=== PATIENT | female | born 1980 | race Caucasian/White ===

== ENCOUNTER 2017-03-17 15:25 | Inpatient (IN) ==
[2017-03-17] MEDS ORDERED: 0.9 % Sodium Chloride 1,000 ML IVC ONE (15:32)
--- NOTE | 2017-03-17 15:49 | General Surg History&Physical ---
Date of Encounter: 03/17/17 Time of Encounter: 15:47 Assessment and Plan (1) Gallstones and inflammation of gallbladder without obstruction Status: Acute 36F with cholecystitis with concern for choledocholithiasis. All prior imaging was reviewed and interpreted by me along with radiology. With her dutal dilatation and persistent pain, I am concerned that she may have choledocholithiasis in addition to acute cholecystitis. I am not comfortable with sending her home with such a diagnosis pending. - admit - DVT prophylaxix - NPO -IVF - dilaudid for pain control - restart home meds - labs (CBC, CMP, amylase, lipase, PTH) - imaging: US of abdomen possible MRCP vs ERCP pending results - UA - abx: zosyn The assessment and plan as outlined above was discussed with the patient and/or family members who expressed understanding and agreement. All questions were answered. Code(s): K80.00 - Calculus of gallbladder with acute cholecystitis without obstruction (2) Anxiety disorder Status: Chronic restart associated home meds The assessment and plan as outlined above was discussed with the patient and/or family members who expressed understanding and agreement. All questions were answered. (3) Depression Status: Chronic restart associated home medication The assessment and plan as outlined above was discussed with the patient and/or family members who expressed understanding and agreement. All questions were answered. Qualifiers: Depression Type: major depressive disorder Major depression recurrence: recurrent Active/Remission status: currently active Psychotic features: without psychotic features (4) Tobacco abuse Status: Chronic encourage smoking cessation nicotine patch The assessment and plan as outlined above was discussed with the patient and/or family members who expressed understanding and agreement. All questions were answered. History of Present Illness Chief complaint: abdominal pain, RUQ HPI: 36F with a PMH of opiod abuse who presents with RUQ abdominal pain that has been ongoing for several months. The pain is worse after spicy foods with associated nausea. She was evaluated recently in the emergency department and found to have cholelithiasis with concern for common bile duct dilatation. In addition her labs, at that time, were concerning for possible UTI. She presents to clinic for further evaluation. The patient does report that she is in a significant amount of pain and is not able to take another night in such pain Past Med Surg Social Fam HX - Past Medical History Medical history: arthritis, kidney stones, other Psychiatric history: anxiety, bipolar, depression, prior suicide attempt, previous psychiatric hospitalization - Past Surgical History Surgical History: , orthopedic, other - Social History Smoking Status: Current every day smoker Smokeless Tobacco Status: No Alcohol use: none Drug use: none - Family History Mother Living Status: Still Living Hx Family Cardiac Disorders: Yes (HTN, high cholesterol) Medications and Allergies CarBAMazepine [Tegretol] 200 mg PO BID 03/11/15 [History] Escitalopram 20 mg PO DAILY 03/11/15 [History] RisperiDONE [RisperDAL] 1 mg PO BID 03/11/15 [History] Buspirone [Buspar] 30 mg PO BID #120 tablet 03/14/15 [Rx] CarBAMazepine [Tegretol] 200 mg PO BID #60 tablet 03/14/15 [Rx] Escitalopram [Lexapro] 20 mg PO DAILY #30 tablet 03/14/15 [Rx] Gabapentin [Neurontin] 300 mg PO TIDWM #90 capsule 03/14/15 [Rx] RisperiDONE [RisperDAL] 1 mg PO BID #60 tablet 03/14/15 [Rx] Ibuprofen 800 mg PO Q8H PRN #21 tablet 06/12/16 [Rx] predniSONE [PredniSONE] 20 mg PO DAILY #5 tablet 06/12/16 [Rx] HYDROcodone/Acet 5/325 mg [[place] 5-325 mg] 1 tab PO Q6H PRN #12 tab 07/12/16 [Rx ] diazePAM [Valium] 5 mg PO TID #10 tablet 07/12/16 [Rx] Orphenadrine [Norflex] 100 mg PO Q12HR PRN #10 tablet.er 09/19/16 [Rx] predniSONE [Prednisone] 50 mg PO DAILY #5 tablet 09/19/16 [Rx] Orphenadrine [Norflex] 100 mg PO Q12HR #10 tablet.er 09/25/16 [Rx] Oxycodone HCl/Acetaminophen [Percocet 5-325 mg Tablet] 1 each PO Q4HR PRN #6 tablet 01/23/17 [Rx] predniSONE [PredniSONE] 40 mg PO DAILY #10 tablet 01/23/17 [Rx] Hyoscyamine SL [Levsin SL] 0.125 mg SL TID #10 tab.subl 03/04/17 [Rx] Morphine Immed Rel [Morphine Sulfate] 30 mg PO Q8HR #10 tablet 03/04/17 [Rx] Ondansetron ODT [Zofran ODT] 4 mg SL Q6HR #10 tab.rapdis 03/04/17 [Rx] Cyclobenzaprine [Flexeril] 10 mg PO TID #15 tablet 03/10/17 [Rx] HYDROcodone/Acet 5/325 mg [[place] 5-325 mg] 1 tab PO Q6H PRN #10 tab 03/10/17 [Rx ] HYDROcodone/Acet 5/325 mg [[place] 5-325 mg] 1 tab PO Q6H PRN #20 tab 03/14/17 [Rx ] Hyoscyamine SL [Levsin SL] 0.125 mg SL TID #30 tab.subl 03/14/17 [Rx] Ondansetron ODT [Zofran ODT] 4 mg SL Q6HR PRN #14 tab.rapdis 03/14/17 [Rx] 3 Allergy/AdvReac Type Severity Reaction Status Date / Time Sulfa (Sulfonamide AdvReac Palpitation Verified 03/14/17 10:22 Antibiotics) s Review of Systems All systems PM: A 10-system review of systems was performed and is negative for pertinent findings except as documented above in the HPI. General Surgery Exam - General physical appearance well developed, well nourished, moderate pain - Eyes other (no scleral icterus), normal ocular movement - ENT normocephalic - Neck no lymphadectomy - Respiratory normal expansion, normal respiratory effort - Cardiovascular Cardiovascular exam: Present: RRR - Abdomen Abdomen general surgery: Present: soft, tender Abdominal Tenderness: Present: RUQ (non peritoneal) - Integumentary Integumentary general surgery: Present: warm and dry, no abnormal pigmentation - Neurologic Present: CN 2-12 grossly intact - Musculoskeletal Present: other (FROM in UE/LE bilaterally) - Psychiatric Psychiatric general surgery: Present: A&Ox3 Results - Labs All other labs normal. - Imaging CT scan - abdomen: report reviewed, image reviewed CT scan - pelvis: report reviewed, image reviewed US - abdomen: report reviewed, image reviewed
[2017-03-17] MEDS ORDERED: Albuterol 2.5 MG/3 ML NEBULIZER IH PRN (15:56)
[2017-03-17 17:02] LABS: Basophils # 0.1 K/mcL (0.0-0.2); Basophils % 1.1 %; Eosinophils # 0.7 K/mcL (0.0-0.6); Eosinophils % 9.3 %; Hematocrit 37.6 % (35.3-44.9); Hemoglobin 12.8 g/dL (11.5-15.4); Immature Granulocytes % 0.3 % (0-4); Lymphocytes # 1.7 K/mcL (0.6-4.6); Lymphocytes % 23.9 %; Mean Corpuscular Hemoglobin 31.5 pg (28.0-33.3); Mean Corpuscular Volume 92.6 fL (83.0-100.0); Mean Platelet Volume 8.9 fL (9.4-12.4); Monocytes # 0.6 K/mcL (0.0-1.3); Monocytes % 8.1 %; Neutrophils # 4.1 K/mcL (1.6-8.9); Platelet Count 259 K/mcL (140-400); Red Blood Count 4.06 M/mcL (3.82-4.97); Red Cell Distribution Width 13.2 % (11.5-14.5); Segmented Neutrophils % 57.3 %
[2017-03-17 17:17] LABS: Chloride 105 mEq/L (98-109); Potassium 3.9 mEq/L (3.5-4.5); Sodium 132 mEq/L (136-145)
[2017-03-17 17:18] LABS: Alanine Aminotransferase 10 Units/L (0-55); Albumin 3.4 g/dL (3.5-5.0); Albumin/Globulin Ratio 1.1 (1.1-2.2); Alkaline Phosphatase 81 Units/L (38-126); Amylase 68 Units/L (25-125); Aspartate Amino Transferase 13 Units/L (5-34); BUN/Creatinine Ratio 12 (6-26); Bilirubin,Total 0.3 mg/dL (0.2-1.2); Blood Urea Nitrogen 7 mg/dL (7-20); Calcium 8.3 mg/dL (8.6-10.8); Carbon Dioxide 21 mEq/L (19-29); Globulin 3.2 g/dL (2.4-3.5); Glucose 93 mg/dL (70-99); Lipase 105 Units/L (8-78); Osmolality,Calculated 272 (280-300); Total Protein 6.6 g/dL (6.0-8.3); eGFR For African Americans > 60 (> 60); eGFR For Non-African Americans > 60 (> 60)
[2017-03-17] MEDS: *HR* HYDROmorphone (PF) 1 MG/ML SYRINGE IVP PRN ×2 (18:05→22:27)
[2017-03-17] MEDS: *HR* Promethazine 25 MG/ML VIAL IVP PRN (18:05)
[2017-03-17] MEDS: Nicotine 7 MG PATCH.TD24 TD SCH (18:06)
[2017-03-17] MEDS: Gabapentin 100 MG CAPSULE PO SCH ×2 (18:06→20:36)
[2017-03-17] MEDS: D5% in Lactated Ringers 1,000 ML IVC SCH (20:00)
[2017-03-17] MEDS: carBAMazepine 200 MG TABLET PO SCH (20:36)
[2017-03-17] MEDS: Piperacillin/Tazobactam 3.375 GM/200 ML BAG IVPB SCH ×2 (22:29→23:30)
[2017-03-17 22:39] LABS: Bilirubin,Urine Negative (Negative); Blood,Urine Negative (Negative); Clarity,Urine Cloudy (Clear); Color,Urine Yellow (Yellow); Glucose,Urine (UA) Normal (Normal); Ketones,Urine Negative (Negative); Leukocyte Esterase,Urine Negative (Negative); Nitrite,Urine Negative (Negative); PH,Urine 6.5 pH Units (5.0-8.0); Protein,Urine Negative (Neg-Trace); Specific Gravity,Urine 1.016 (1.010-1.025); Urobilinogen,Urine Normal (Normal)
[2017-03-17 22:41] LABS: Bacteria,Urine Moderate per hpf (None-Few); Hyaline Casts,Urine None Seen per lpf (None-Few); RBC,Urine 0-3 per hpf (0-3); Squamous Epithelial Cell,Urine Many per lpf (None-Few); WBC,Urine 0-3 per hpf (0-3)
[2017-03-18] MEDS: *HR* Promethazine 25 MG/ML VIAL IVP PRN (02:37)
[2017-03-18] MEDS: *HR* HYDROmorphone (PF) 1 MG/ML SYRINGE IVP PRN ×6 (02:37→23:29)
[2017-03-18] MEDS: D5% in Lactated Ringers 1,000 ML IVC SCH ×2 (06:02→14:05)
[2017-03-18] MEDS: *HR* Enoxaparin 40 MG/0.4 ML SYRINGE SQ SCH (06:03)
[2017-03-18] MEDS: Lurasidone 20 MG TABLET PO SCH (07:51)
[2017-03-18] MEDS: carBAMazepine 200 MG TABLET PO SCH ×2 (08:05→20:01)
[2017-03-18] MEDS: Gabapentin 100 MG CAPSULE PO SCH ×4 (08:06→20:01)
[2017-03-18] MEDS: Piperacillin/Tazobactam 3.375 GM/200 ML BAG IVPB SCH ×3 (08:06→23:28)
--- NOTE | 2017-03-18 16:03 | General Surgery Progress Note ---
Date of Encounter: 03/18/17 Time of Encounter: 09:00 - Assessment and Plan (1) Gallstones and inflammation of gallbladder without obstruction Current Visit: No Status: Acute 36F with cholecystitis with concern for CDB dilatation; MRCP mentions concern for CBD stricture; With her liver enzymes being normal and WBC being normal, it does not seem like choledocholithiasis; however, I will talk with GI concerning possibility of stricture. Will take patient to surgery but still feel she will need surgery to remove her gallbladder - NPO -IVF - cont abx - repeat labs in AM - appreciate GI recs - plan for lap amena in AM Code(s): K80.00 - Calculus of gallbladder with acute cholecystitis without obstruction (2) Anxiety disorder Current Visit: No Status: Chronic cont meds (3) Depression Current Visit: No Status: Chronic cont with home meds Qualifiers: Depression Type: major depressive disorder Major depression recurrence: recurrent Active/Remission status: currently active Psychotic features: without psychotic features (4) Tobacco abuse Current Visit: No Status: Chronic nicotine patch Subjective Patient reports: no new complaints, feels better, still having pain Objective Vital Signs - Last 8 Hours Temp Pulse Resp BP Pulse Ox 03/18/17 10:30 97.8 F 69 14 115/73 99 Intake and Output 03/17/17 03/18/17 03/18/17 23:59 07:59 15:59 Intake Total 0 / 0 1200 / 1200 950 / 950 Output Total 700 / 700 0 / 0 600 / 600 Balance -700 / -700 1200 / 1200 350 / 350 Intake: IV Fluids 1200 / 1200 950 / 950 D5% & Lact. Ringers 1000 Ml Bag 1000 / 1000 750 / 750 1,000 ML @ 100 mls/hr IVC . Q10H CLAU Rx#:[id number] Zosyn Premix 3.375 GM/200 ML 3. 200 / 200 200 / 200 375 gm In 200 ml @ 50 mls/hr IVPB Q8HR CLAU Rx#:[id number] Oral 0 / 0 0 / 0 0 / 0 Output: Urine 700 / 700 0 / 0 600 / 600 Other: Meal NPO NPO Lunch Percent of Meal Consumed 0% Weight 71.214 kg 70.942 kg Blood Glucose* 107 103 105 Patient Weight 03/18/17 23:59 Weight 70.942 kg - General physical appearance well developed, well nourished, no distress - Eyes other (no scleral icterus) - Respiratory normal expansion, normal respiratory effort - Cardiovascular Cardiovascular exam: Present: RRR - Abdomen Abdomen: Present: soft, tender Abdominal Tenderness: RUQ - Integumentary no rash - Neurologic CN 2-12 grossly intact - Musculoskeletal normal gait, other (FROm in UE/LE bialterally) - Psychiatric oriented to time, oriented to person, oriented to place - Labs 03/17/17 16:52 03/17/17 16:52 Diabetes panel 03/17/17 Range/Units 16:52 Sodium 132 L (136-145) mEq/L Potassium 3.9 (3.5-4.5) mEq/L Chloride 105 (98-109) mEq/L Carbon Dioxide 21 (19-29) mEq/L BUN 7 (7-20) mg/dL Creatinine 0.60 (0.57-1.11) mg/dL Glucose 93 (70-99) mg/dL Calcium 8.3 L (8.6-10.8) mg/dL AST 13 (5-34) Units/L ALT 10 (0-55) Units/L Alkaline Phosphatase 81 (38-126) Units/L Albumin 3.4 L (3.5-5.0) g/dL Calcium panel 03/17/17 Range/Units 16:52 Calcium 8.3 L (8.6-10.8) mg/dL Albumin 3.4 L (3.5-5.0) g/dL Pituitary panel 03/17/17 Range/Units 16:52 Sodium 132 L (136-145) mEq/L Potassium 3.9 (3.5-4.5) mEq/L Chloride 105 (98-109) mEq/L Carbon Dioxide 21 (19-29) mEq/L BUN 7 (7-20) mg/dL Creatinine 0.60 (0.57-1.11) mg/dL Glucose 93 (70-99) mg/dL Calcium 8.3 L (8.6-10.8) mg/dL Adrenal panel 03/17/17 Range/Units 16:52 Sodium 132 L (136-145) mEq/L Potassium 3.9 (3.5-4.5) mEq/L Chloride 105 (98-109) mEq/L Carbon Dioxide 21 (19-29) mEq/L BUN 7 (7-20) mg/dL Creatinine 0.60 (0.57-1.11) mg/dL Glucose 93 (70-99) mg/dL Calcium 8.3 L (8.6-10.8) mg/dL Total Bilirubin 0.3 (0.2-1.2) mg/dL AST 13 (5-34) Units/L ALT 10 (0-55) Units/L Alkaline Phosphatase 81 (38-126) Units/L Albumin 3.4 L (3.5-5.0) g/dL Consult Discharge Plan - Plan Referrals: Pola Catherine MD [Primary Care Provider] -
[2017-03-18] MEDS: Nicotine 7 MG PATCH.TD24 TD SCH (17:01)
--- NOTE | 2017-03-18 19:17 | Anesthesia Evaluation PreOp ---
Date of Encounter: 03/18/17 Time of Encounter: 19:00 - Past History Planned Operation: Lap Cholecystectomy Cardiac History: Denies any Significant Hx Pulmonary History: Smoker BOILER ENGINEER History: Denies Any Significant HX Other Medical History: Other (Anxiety Depression) Anesthesia History: No Prior Anesthetic Complications : No Test: Negative Alcohol Use: none Drug use: none Medications and Allergies CarBAMazepine [Tegretol] 200 mg PO BID 03/11/15 [History] Escitalopram [Lexapro] 20 mg PO DAILY #30 tablet 03/14/15 [Rx] HYDROcodone/Acet 5/325 mg [[place] 5-325 mg] 1 tab PO Q6H PRN #20 tab 03/14/17 [Rx ] Ondansetron ODT [Zofran ODT] 4 mg SL Q6HR PRN #14 tab.rapdis 03/14/17 [Rx] Benztropine Mesylate 0.5 mg PO HS 03/17/17 [History] Buspirone HCl [Buspar] 30 mg PO BID 03/17/17 [History] Gabapentin [Neurontin] 800 mg PO QID 03/17/17 [History] Lurasidone HCl [Latuda] 80 mg PO DAILY 03/17/17 [History] 3 Allergy/AdvReac Type Severity Reaction Status Date / Time Sulfa (Sulfonamide AdvReac Palpitation Verified 03/14/17 10:22 Antibiotics) s - Meds/Allergy Pre-op Review Medications Reviewed: Yes Allergies Reviewed: Yes Beta Blockers on Current Med List: No Anesthesia Results - Labs 03/17/17 16:52 03/17/17 16:52 Laboratory Tests 03/14/17 03/17/17 03/17/17 10:25 16:52 16:52 Hgb 12.8 Hct 37.6 Plt Count 259 Sodium 132 L Potassium 3.9 BUN 7 Creatinine 0.60 Urine Test Negative Anesthesia Exam O2 Sat Weight 70.942 kg O2 Sat by Pulse Oximetry 96 O2 Sat by Pulse Oximetry 94 O2 Sat by Pulse Oximetry 99 O2 Sat by Pulse Oximetry 97 O2 Sat by Pulse Oximetry 97 O2 Sat by Pulse Oximetry 97 Vital Signs Temp Pulse Resp BP Pulse Ox 98.6 F 78 16 115/79 96 03/17/17 16:51 03/17/17 16:51 03/17/17 16:51 03/17/17 16:51 03/17/17 16:51 Height: 5'6 Weight: 156 lbs NPO (# of Hours): MN Pain Scale: 0 - HEENT Pupil (Motor): Pupils equal, EOMI Mallampati: II Teeth: Normal Oral Opening: Greater than 3 - BOILER ENGINEER LOC: Oriented BOILER ENGINEER Motor: Normal RUE, Normal LUE, Normal RLE, Normal LLE, Normal Face BOILER ENGINEER Sensory: Normal: RUE, LUE, RLE, LLE, Face - Cardiac Rhythm: Regular Murmur: None JVD: No Carotid Bruit: No - Pulmonary Breath Sounds: bilateral Clear Respiratory Effort: Symmetrical Anesthesia Assess/Plan ASA Score: 2 Anesthetic Plan: General Monitoring Plan: Standard Monitors Recovery Plan: PACU (Discussed GA, agrees to proceed)
[2017-03-19] MEDS: D5% in Lactated Ringers 1,000 ML IVC SCH (01:31)
[2017-03-19] MEDS: *HR* HYDROmorphone (PF) 1 MG/ML SYRINGE IVP PRN ×7 (04:23→23:50)
[2017-03-19] MEDS: *HR* Enoxaparin 40 MG/0.4 ML SYRINGE SQ SCH (06:53)
[2017-03-19] MEDS: carBAMazepine 200 MG TABLET PO SCH ×2 (08:23→20:20)
[2017-03-19] MEDS: Gabapentin 100 MG CAPSULE PO SCH ×4 (08:24→20:19)
[2017-03-19] MEDS: Lurasidone 20 MG TABLET PO SCH (08:24)
--- NOTE | 2017-03-19 08:26 | General Surgery Progress Note ---
Date of Encounter: 03/19/17 Time of Encounter: 08:25 - Assessment and Plan (1) Gallstones and inflammation of gallbladder without obstruction Current Visit: No Status: Acute 36F with cholecystitis with concern for CDB dilatation; MRCP mentions concern for CBD stricture; With her liver enzymes being normal and WBC being normal, it does not seem like choledocholithiasis; however, I will talk with GI concerning possibility of stricture. Will take patient to surgery but still feel she will need surgery to remove her gallbladder - NPO -IVF - cont abx - repeat labs in AM - appreciate GI recs -lap amena today Code(s): K80.00 - Calculus of gallbladder with acute cholecystitis without obstruction (2) Anxiety disorder Current Visit: No Status: Chronic cont meds (3) Depression Current Visit: No Status: Chronic cont with home meds Qualifiers: Depression Type: major depressive disorder Major depression recurrence: recurrent Active/Remission status: currently active Psychotic features: without psychotic features (4) Tobacco abuse Current Visit: No Status: Chronic nicotine patch Subjective Patient reports: no new complaints, feels better, still having pain, pain is less Objective Vital Signs - Last 8 Hours Temp Pulse Resp BP Pulse Ox 03/19/17 06:40 97.7 F 72 16 109/71 99 03/19/17 03:11 98.5 F 70 14 106/72 97 Intake and Output 03/18/17 03/19/17 03/19/17 23:59 07:59 15:59 Intake Total 200 / 200 1000 / 1000 Output Total 600 / 600 700 / 700 Balance -400 / -400 300 / 300 Intake: IV Fluids 200 / 200 1000 / 1000 D5% & Lact. Ringers 1000 Ml Bag 1000 / 1000 1,000 ML @ 100 mls/hr IVC . Q10H CLAU Rx#:[id number] Zosyn Premix 3.375 GM/200 ML 3. 200 / 200 375 gm In 200 ml @ 50 mls/hr IVPB Q8HR CLAU Rx#:[id number] Oral 0 / 0 0 / 0 Output: Urine 600 / 600 700 / 700 Other: Stool Size Large Stool Consistency formed # Bowel Movements 1 0 Weight 70.806 kg Blood Glucose* 213 145 Patient Weight 03/19/17 23:59 Weight 70.806 kg - General physical appearance well developed, well nourished, no distress - Eyes normal ocular movement - ENT normocephalic - Respiratory normal expansion, normal respiratory effort - Cardiovascular Cardiovascular exam: Present: RRR - Abdomen Abdomen: Present: soft, tender Abdominal Tenderness: RUQ - Integumentary no rash - Neurologic CN 2-12 grossly intact - Psychiatric oriented to time, oriented to person, oriented to place - Labs 03/17/17 16:52 03/17/17 16:52 Consult Discharge Plan - Plan Referrals: Pola Catherine MD [Primary Care Provider] -
[2017-03-19 09:23] LABS: INR 1.1; Prothrombin Time 11.7 Seconds (9.4-12.1)
[2017-03-19 09:32] LABS: Alanine Aminotransferase 8 Units/L (7-52); Albumin 3.2 g/dL (3.5-5.7); Albumin/Globulin Ratio 1.8 (1.1-2.2); Alkaline Phosphatase 56 Units/L (34-104); Aspartate Amino Transferase 11 Units/L (13-39); BUN/Creatinine Ratio 5 (6-26); Bilirubin,Total 0.3 mg/dL (0.3-1.0); Blood Urea Nitrogen 3 mg/dL (6-20); Calcium 8.1 mg/dL (8.6-10.3); Carbon Dioxide 24 mEq/L (23-29); Chloride 110 mEq/L (98-107); Globulin 1.8 g/dL (2.4-3.5); Glucose 101 mg/dL (70-105); Osmolality,Calculated 279 (280-300); Potassium 3.7 mEq/L (3.5-5.1); Sodium 136 mEq/L (136-145); eGFR For African Americans > 60 (> 60); eGFR For Non-African Americans > 60 (> 60)
[2017-03-19 10:24] LABS: Eosinophils # 0.5 K/mcL (0.0-0.6); Eosinophils % 11.4 %; Hematocrit 31.7 % (35.3-44.9); Immature Granulocytes % 0.2 % (0-4); Immature Platelets 1.8 % (1.1-6.1); Lymphocytes # 1.1 K/mcL (0.6-4.6); Mean Corpuscular HGB Conc 33.8 g/dL (31.6-35.5); Mean Corpuscular Hemoglobin 31.9 pg (28.0-33.3); Mean Corpuscular Volume 94.6 fL (83.0-100.0); Mean Platelet Volume 9.4 fL (9.4-12.4); Monocytes # 0.4 K/mcL (0.0-1.3); Monocytes % 10.4 %; Platelet Count 238 K/mcL (140-400); Red Blood Count 3.35 M/mcL (3.82-4.97); Red Cell Distribution Width 13.4 % (11.5-14.5)
[2017-03-19 10:26] LABS: Hemoglobin 10.7 g/dL (11.5-15.4)
[2017-03-19] MEDS: Piperacillin/Tazobactam 3.375 GM/200 ML BAG IVPB SCH ×2 (10:51→20:22)
--- NOTE | 2017-03-19 11:43 | Gastroenterology Consult Note ---
Date of Encounter: 03/19/17 Time of Encounter: 10:15 - Assessment and plan (1) Dilated cbd, acquired Current Visit: Yes Status: Acute Assessment and plan: Pt has mild CBD dilation may be due to papilary stenosis. Scheduled for cholecystectomy today, may need ERCP. - Time Spent With Patient Total time spent is greater than 50% in coordination of care (as documented) at patient's floor/unit and/or counseling patient: GI History of Present Illness - Data of Consult Patient: new to practice Consult date: 03/19/17 Requesting Physician: Ranjith Baker MD - Consult Narrative Reason for consult: CBD dilation History of present illness: Ms. Garibay is a 36 year old female with a PMH of opiod abuse, arthritis, kidney stones, anxiety and bipolar depression who presents with RUQ abdominal pain that has been ongoing for several weeks. The pain is worse after spicy foods. She also complains of nausea and vomiting. She denies any hematemesis, bloody or tarry stools. She denies diarrhea but has occasional constipation. The patient reports taking ibuprofen occasionally for pain. She was evaluated recently in the emergency department and found to have cholelithiasis with concern for common bile duct dilatation. MRI of the abdomen showed Hepatic steatosis. Cholelithiasis and biliary sludge. Spleen and adrenals are normal. No hydronephrosis.Incidentally noted pancreatic divisum. Pancreatic ducts are normal in caliber. Unchanged mild dilation of the extrahepatic common duct. Only minimal intrahepatic ductal dilation. No evidence of choledocholithiasis. Labs show normal LFTs, lipase was 105. WBC 7.1, Hgb 12.8, platelet 259. She was evaluated by surgery and is scheduled for cholecystectomy today. Colonoscopy: denies EGD: denies NSAIDS/ASA: ibuprofen prn Anticoagulants: denies Past Med Surg Social Fam HX - Past Medical History Medical history: arthritis, kidney stones, other Psychiatric history: anxiety, bipolar, depression, prior suicide attempt, previous psychiatric hospitalization - Past Surgical History Surgical History: , orthopedic, other - Social History Smoking Status: Current every day smoker Smokeless Tobacco Status: No Alcohol use: none Drug use: none - Family History Mother Living Status: Still Living Hx Family Cardiac Disorders: Yes (HTN, high cholesterol) Review of Systems: GI: as per [facility] GENERAL: denies fever or chills EYES: denies yellow discoloration ENT: denies pain with swallowing or difficulty swallowing CARDIO: denies chest pain, palpitations RESP: No Shortness of breath with exertion : denies change in color of urine NEURO: denies any weakness HEME: Denies any bruising MS: chronic joint pain and back pain. DERM: denies rash or itching PSYCH: history of anxiety and bipolar depression - Constitutional Vitals: Temp Pulse Resp BP Pulse Ox 97.4 F L 80 16 109/68 95 03/19/17 10:35 03/19/17 10:35 03/19/17 10:35 03/19/17 10:35 03/19/17 10:35 Exam: CONSTITUTIONAL:~alert, no acute distress.~HEAD:~normocephalic.~EYES:~no jaundice.~NECK:~no obvious swelling.~HEART:~regular rate and rhythm, no murmurs. ~LUNGS:~bilateral good air entry.~ABDOMEN:~non distended, soft, tender upper quadrants, no masses palpable, no organomegaly.~RECTAL EXAM:~Deferred.~ EXTREMITIES:~no clubbing, cyanosis or edema.~SKIN:~no stigmata of chronic liver disease, large samantha noted to left foot.~NEUROLOGIC:~no obvious focal defect.~~~~ Results - Labs CBC & Chem 7: 03/19/17 09:42 03/19/17 08:47 Labs: Last Result Calcium 8.1 mg/dL (8.6-10.3) L 03/19/17 08:47 Entire Visit Hgb 10.7 g/dL (11.5-15.4) L D 03/19/17 09:42 Hct 31.7 % (35.3-44.9) L 03/19/17 09:42 PT 11.7 Seconds (9.4-12.1) 03/19/17 08:47 Total Bilirubin 0.3 mg/dL (0.3-1.0) 03/19/17 08:47 AST 11 Units/L (13-39) L 03/19/17 08:47 ALT 8 Units/L (7-52) 03/19/17 08:47 Amylase 68 Units/L (25-125) 03/17/17 16:52 Lipase 105 Units/L (8-78) H 03/17/17 16:52 - ABG ABG results: PT/INR, D-dimer PT 11.7 Seconds (9.4-12.1) 03/19/17 08:47 - Impressions Impressions Gallbladder Ultrasound 03/17/17 21:00 IMPRESSION: 1. The gallbladder is distended and filled with sludge and gallstones. Mild gallbladder wall thickening. Correlate for acute cholecystitis. 2. Common bile duct dilatation. No evident common duct calculus. D/ / 03/17/2017 21:53:58 Viet Whitley MD / laura Interpreting Provider: Viet Whitley MD Abdomen MRI 03/18/17 07:07 IMPRESSION: Unchanged mild intra and extrahepatic biliary ductal dilation without evidence of choledocholithiasis. Findings are similar to multiple prior studies dating back to December 2013 and favored to represent mild common duct stricture over obstructing mass due to the normal caliber pancreatic duct. Incidentally noted pancreatic divisum. Hepatic steatosis. Cholelithiasis and biliary sludge without definite evidence of cholecystitis. D/ / Abhilash Alcala MD / Abhilash Alcala MD Interpreting Provider: Abhilash Alcala MD Consult Discharge Plan - Plan Referrals: Pola Catherine MD [Primary Care Provider] -
[2017-03-19] MEDS: D5% in 0.45% NACL w KCl 20 MEQ/1,000 ML MLS IVC SCH (13:41)
[2017-03-19] MEDS ORDERED: *HR* Propofol 200 MG/20 ML VIAL IVP ONE (15:29)
[2017-03-19] MEDS ORDERED: *HR* FentaNYL (PF) 100 MCG/2 ML VIAL ONE ×3 (15:29→17:41)
[2017-03-19] MEDS ORDERED: Lidocaine -MPF 2% 2 ML VIAL ONE (15:29)
[2017-03-19] MEDS ORDERED: *HR* Rocuronium Bromide 50 MG/5 ML VIAL ONE (15:29)
[2017-03-19] MEDS ORDERED: *HR* Midazolam HCl 2 MG/2 ML VIAL ONE (15:29)
[2017-03-19] MEDS ORDERED: Ondansetron 4 MG/2 ML VIAL ONE ×2 (15:29→18:11)
[2017-03-19] MEDS ORDERED: Lidocaine -MPF 4% 5 ML AMPUL ONE (15:29)
[2017-03-19] MEDS ORDERED: *HR* Succinylcholine 200 MG/10 ML VIAL IVP ONE (15:29)
[2017-03-19] MEDS ORDERED: Dexamethasone 4 MG/ML VIAL ONE (15:29)
[2017-03-19] MEDS ORDERED: EPHEDrine 50 MG/ML VIAL ONE (15:42)
[2017-03-19] MEDS ORDERED: Ketorolac 30 MG/ML VIAL ONE (18:02)
[2017-03-19] MEDS: *HR* Promethazine 25 MG/ML VIAL IVP PRN ×3 (18:37→23:25)
--- NOTE | 2017-03-19 18:37 | Operative Note ---
Date of procedure: 03/19/17 Pre-op diagnosis: acute cholecystitis Post-op diagnosis: same Procedure: laparoscopic cholecystectomy with intraoperative cholangiogram Implants: none Complications: none Anesthesia: GETA Local Anesthetics: 0.5% Sensorcaine HCL SubQ (cc) Surgeon: Ranjith Baker Sushi Chef: Alysha Arboleda Estimated blood loss (cc): 30 Specimen: gallbladder and contents Condition: stable Disposition: PACU Procedure in Detail: The patient was brought into the operating room suite and was placed in the supine position. Mechanical DVT prophylaxis was applied. A time-in was conducted. The patient underwent smooth induction of anesthesia. Preoperative antibiotics were given. The patient was prepped and draped in the usual fashion. A time-out was held identifying the correct patient, pathology, and procedure. Everyone was in agreement and we began the procedure. Incision to Dissection I started by creating a 10mm supraumbilical incision. Via open Geovany technique I did enter into the abdomen. Using a Vicryl on a UR-6 needle, I reapproximated, but did not close the fascia in a [id number] fashion. I inserted the 10mm, 30 degree camera, ensured that I did not cause intraabdominal injury upon entry, and quickly identified the gallbladder. It did possess pale color. I created a 5mm incision in the epigastric region followed by two more 5mm incision, one at the midclavicular line, the last at the anterior axillary line. Using laparoscopic graspers I managed to elevate the gallbladder above the liver. I used a needle to decompress the gallbladder prior to grasping. I grasp the edge of the gallbladder to retract laterally. Using the [place] instrument as well as the hook-electrocautery, I dissected out the cystic duct and the cystic artery. It should be stated that there was significant inflammation of the gallbladder. I excised the posterior tissue to visualize the liver. I was able to clearly visualize the critical view of safety. By the time I did this step, I was somewhat uncertain of the structures as the cystic duct was as big as the common bile duct/ Intraooperative Cholangiogram I created a small incision on the abdominal wall and inserted the catheter. I created a ductotomy. I then milked what I believed to be the cystic duct and retrieved multiple stones. After doing this I threaded the catheter into the duct and ran a cholangiogram. I was able to identify contrast going into the common bile duct (which did taper at the very end) and into the duodenum. I comcluded this portion of the procedure. Critical view of Safety to Excison of the gallbladder I then clipped the artery, two on the stay side, one on the specimen side. Using laparoscopic scissors, I cut between the clip on the specimen side and the first clip on the stay side. I used a 45mm blue load stapler to go across the cystic duct. Then using tension and counter-tension, I used the electrocautery to excise the gallbladder off of the liver bed. Before complete excision, I evaluated the liver bed to ensure there 1.) there was no bleeding, 2. No excessive bile leakage, and 3.) to evaluate my clips. There was no bleeding, bile leakage, and the clips across the artery were in place and were all the way across the artery. Removal of gallbladder to Closure To remove the gallbladder I had to extend the 5mm incision in the epigastric region. I inserted the endocatch bag through that port and retrieved it from it as well. I evaluated the liver bed once more. I removed the 5mm ports, turned off the insufllation, I then close the umbilical fascia using the vicryl suture from the start. I also close the fascia for the epigastric incision as well. All incisions were closed with interrupted 4-0 monocryl and sealed with dermabond. The patient tolerated the procedure well and went back to PACU in stable condition.
--- NOTE | 2017-03-19 19:08 | Anesthesia Evaluation Post Op ---
Date of Encounter: 03/19/17 Time of Encounter: 19:07 - Vital Signs Vital Signs: Vital Signs/O2 Sat, Most Current Temp Pulse Resp BP Pulse Ox 97.3 F L 84 17 119/74 97 03/19/17 19:00 03/19/17 19:00 03/19/17 19:00 03/19/17 19:00 03/19/17 19:00 - Lungs Lungs: Clear Ascult./Percussion - Airway Airway: Non-obstructed - Cardiovascular Regular Rate - Mental Status Mental Status: Alert & Oriented, Answers Appropriately - Pain Pain Scale: 5 Pain Scale used: Numeric (1 - 10) - Nausea Vomiting Nausea Vomiting: Not Present - Hydration Hydration: NPO, Has not voided - Discharge PostOp Status: Transfer Patient to floor
[2017-03-19] MEDS: Nicotine 7 MG PATCH.TD24 TD SCH (20:20)
[2017-03-19] MEDS ORDERED: Ketorolac 15 MG/ML VIAL IVP PRN (23:14)
[2017-03-20] MEDS ORDERED: *HR* OxyCODONE/APAP 10/325 TABLET PO ONE (02:28)
[2017-03-20] MEDS ORDERED: *HR* OxyCODONE/APAP 5/325 TABLET PO PRN (05:01)
[2017-03-20] MEDS: *HR* Enoxaparin 40 MG/0.4 ML SYRINGE SQ SCH (05:05)
[2017-03-20] MEDS: Piperacillin/Tazobactam 3.375 GM/200 ML BAG IVPB SCH ×2 (05:36→22:06)
[2017-03-20] MEDS ORDERED: *HR* OxyCODONE/APAP 7.5/325 TABLET PO PRN (07:13)
[2017-03-20] MEDS ORDERED: D5% in 0.45% NACL w KCl 20 MEQ/1,000 ML MLS IVC SCH (07:15)
[2017-03-20 07:42] LABS: Hematocrit 30.1 % (35.3-44.9); Hemoglobin 9.9 g/dL (11.5-15.4)
[2017-03-20 08:05] LABS: Alanine Aminotransferase 16 Units/L (7-52); Albumin/Globulin Ratio 1.8 (1.1-2.2); Alkaline Phosphatase 52 Units/L (34-104); Aspartate Amino Transferase 26 Units/L (13-39); BUN/Creatinine Ratio 6 (6-26); Bilirubin,Total 0.5 mg/dL (0.3-1.0); Blood Urea Nitrogen 3 mg/dL (6-20); Calcium 7.8 mg/dL (8.6-10.3); Carbon Dioxide 24 mEq/L (23-29); Chloride 110 mEq/L (98-107); Globulin 1.7 g/dL (2.4-3.5); Glucose 93 mg/dL (70-105); Osmolality,Calculated 282 (280-300); Potassium 3.5 mEq/L (3.5-5.1); Sodium 138 mEq/L (136-145); Total Protein 4.7 g/dL (6.4-8.9); eGFR For African Americans > 60 (> 60); eGFR For Non-African Americans > 60 (> 60)
[2017-03-20] MEDS: Gabapentin 100 MG CAPSULE PO SCH ×4 (08:42→20:58)
[2017-03-20] MEDS: traMADol 50 MG TABLET PO PRN ×2 (08:43→17:38)
[2017-03-20] MEDS: carBAMazepine 200 MG TABLET PO SCH ×2 (08:44→20:58)
[2017-03-20] MEDS: Lurasidone 20 MG TABLET PO SCH (08:46)
--- NOTE | 2017-03-20 14:10 | General Surgery Progress Note ---
<Mirlande Gustafson Litzy - Last Filed: 03/20/17 14:15> Date of Encounter: 03/20/17 Time of Encounter: 14:00 - Assessment and Plan (1) Gallstones and inflammation of gallbladder without obstruction Current Visit: No Status: Acute POD #1 laparoscopic cholecystectomy with intraoperative cholangiogram with Dr. Baker Regular diet No IV access- may leave IV out Supportive care and pain control- PO pain medications IS every 1 hour while awake Ambulate hallways TID (2) Anxiety disorder Current Visit: No Status: Chronic Maintain home medication regimen Qualifiers: Anxiety disorder type: generalized anxiety disorder Qualified Code(s): F41.1 - Generalized anxiety disorder (3) Depression Current Visit: No Status: Chronic Maintain home medications regimen Qualifiers: Depression Type: major depressive disorder Major depression recurrence: recurrent Active/Remission status: currently active Psychotic features: without psychotic features Qualified Code(s): F33.2 - Major depressive disorder, recurrent severe without psychotic features (4) Tobacco abuse Current Visit: No Status: Chronic Nicotine patch daily Smoking cessation education (5) DVT prophylaxis Current Visit: Yes Status: Acute EPCDs to bilateral lower extremities for DVT prophylaxis Ambulate hallways 3 times a day Subjective Patient reports: no new complaints, feels better, still having pain, pain is less, tolerating liquids well, voiding w/o difficulty, flatus, no bowel movement , afebrile Objective Vital Signs - Last 8 Hours Temp Pulse Resp BP Pulse Ox 03/20/17 10:21 98.0 F 84 16 110/71 94 03/20/17 06:34 98.1 F 78 16 104/69 98 Intake and Output 03/19/17 03/20/17 03/20/17 23:59 07:59 15:59 Intake Total 0 / 0 120 / 120 480 / 480 Output Total 30 / 30 0 / 0 0 / 0 Balance -30 / -30 120 / 120 480 / 480 Intake: Oral 0 / 0 120 / 120 480 / 480 Output: Urine 0 / 0 0 / 0 Estimated Blood Loss Other: Meal NPO Breakfast Percent of Meal Consumed 60% # Voids 1 1 # Bowel Movements 0 0 Weight 70.715 kg Patient Weight 03/20/17 23:59 Weight 70.715 kg - General physical appearance well developed, well nourished, no distress - Eyes normal ocular movement - ENT normal mucosa, atraumatic, normocephalic - Neck Neck exam: trachea midline - Respiratory normal respiratory effort, clear to auscultation - Cardiovascular Cardiovascular exam: Present: RRR - Abdomen Abdomen: Present: bowel sounds present, soft, tender (Expected postoperative tenderness) - Incision Incision: Present: clean and dry, intact, erythema (mild around RUQ incisions) - Neurologic CN 2-12 grossly intact - Musculoskeletal normal gait, normal posture - Psychiatric oriented to time, oriented to person, oriented to place, speech is normal, memory intact - Labs 03/20/17 07:27 03/20/17 07:27 Diabetes panel 03/20/17 Range/Units 07:27 Sodium 138 (136-145) mEq/L Potassium 3.5 (3.5-5.1) mEq/L Chloride 110 H (98-107) mEq/L Carbon Dioxide 24 (23-29) mEq/L BUN 3 L (6-20) mg/dL Creatinine 0.54 L (0.60-1.20) mg/dL Glucose 93 (70-105) mg/dL Calcium 7.8 L (8.6-10.3) mg/dL AST 26 (13-39) Units/L ALT 16 (7-52) Units/L Alkaline Phosphatase 52 (34-104) Units/L Albumin 3.0 L (3.5-5.7) g/dL Calcium panel 03/20/17 Range/Units 07:27 Calcium 7.8 L (8.6-10.3) mg/dL Albumin 3.0 L (3.5-5.7) g/dL Pituitary panel 03/20/17 Range/Units 07:27 Sodium 138 (136-145) mEq/L Potassium 3.5 (3.5-5.1) mEq/L Chloride 110 H (98-107) mEq/L Carbon Dioxide 24 (23-29) mEq/L BUN 3 L (6-20) mg/dL Creatinine 0.54 L (0.60-1.20) mg/dL Glucose 93 (70-105) mg/dL Calcium 7.8 L (8.6-10.3) mg/dL Adrenal panel 03/20/17 Range/Units 07:27 Sodium 138 (136-145) mEq/L Potassium 3.5 (3.5-5.1) mEq/L Chloride 110 H (98-107) mEq/L Carbon Dioxide 24 (23-29) mEq/L BUN 3 L (6-20) mg/dL Creatinine 0.54 L (0.60-1.20) mg/dL Glucose 93 (70-105) mg/dL Calcium 7.8 L (8.6-10.3) mg/dL Total Bilirubin 0.5 (0.3-1.0) mg/dL AST 26 (13-39) Units/L ALT 16 (7-52) Units/L Alkaline Phosphatase 52 (34-104) Units/L Albumin 3.0 L (3.5-5.7) g/dL - VTE Documentation of Mechanical Device: Intermittent pneumatic compression device Consult Discharge Plan - Plan Referrals: Pola Catherine MD [Primary Care Provider] - - Attending Attestation For this encounter, I have reviewed the [employer] or PA documentation, treatment plan, and medical decision making; and I have had face to face time with this patient. <Ranjith Baker - Last Filed: 03/21/17 08:42> Date of Encounter: 03/21/17 - Assessment and Plan (1) Gallstones and inflammation of gallbladder without obstruction Current Visit: No Status: Acute Code(s): K80.00 - Calculus of gallbladder with acute cholecystitis without obstruction (2) Anxiety disorder Current Visit: No Status: Chronic (3) Depression Current Visit: No Status: Chronic Qualifiers: Depression Type: major depressive disorder Major depression recurrence: recurrent Active/Remission status: currently active Psychotic features: without psychotic features (4) Tobacco abuse Current Visit: No Status: Chronic Objective Vital Signs - Last 8 Hours Temp Pulse Resp BP Pulse Ox 03/21/17 07:10 98.8 F 85 16 119/74 96 03/21/17 04:41 98.1 F 92 16 134/89 93 Intake and Output 03/20/17 03/21/17 03/21/17 23:59 07:59 15:59 Intake Total 460 / 460 360 / 360 Output Total 0 / 0 Balance 460 / 460 360 / 360 Intake: IV Fluids 100 / 100 KCl 20mEq IN D5%-0.45 NACL 20 100 / 100 meq In 1,000 ml @ 100 mls/hr IVC .Q10H CLAU Rx#:[id number] Oral 360 / 360 360 / 360 Output: Urine 0 / 0 Other: Meal Dinner Percent of Meal Consumed 5% # Voids 0 1 Weight 72.257 kg Patient Weight 03/21/17 23:59 Weight 72.257 kg - Labs 03/20/17 22:53 03/20/17 22:53 Diabetes panel 03/20/17 Range/Units 22:53 Sodium 139 (136-145) mEq/L Potassium 3.4 L (3.5-5.1) mEq/L Chloride 110 H (98-107) mEq/L Carbon Dioxide 26 (23-29) mEq/L BUN 4 L (6-20) mg/dL Creatinine 0.48 L (0.60-1.20) mg/dL Glucose 99 (70-105) mg/dL Calcium 7.9 L (8.6-10.3) mg/dL AST 22 (13-39) Units/L ALT 14 (7-52) Units/L Alkaline Phosphatase 52 (34-104) Units/L Albumin 2.9 L (3.5-5.7) g/dL Calcium panel 03/20/17 Range/Units 22:53 Calcium 7.9 L (8.6-10.3) mg/dL Albumin 2.9 L (3.5-5.7) g/dL Pituitary panel 03/20/17 Range/Units 22:53 Sodium 139 (136-145) mEq/L Potassium 3.4 L (3.5-5.1) mEq/L Chloride 110 H (98-107) mEq/L Carbon Dioxide 26 (23-29) mEq/L BUN 4 L (6-20) mg/dL Creatinine 0.48 L (0.60-1.20) mg/dL Glucose 99 (70-105) mg/dL Calcium 7.9 L (8.6-10.3) mg/dL Adrenal panel 03/20/17 Range/Units 22:53 Sodium 139 (136-145) mEq/L Potassium 3.4 L (3.5-5.1) mEq/L Chloride 110 H (98-107) mEq/L Carbon Dioxide 26 (23-29) mEq/L BUN 4 L (6-20) mg/dL Creatinine 0.48 L (0.60-1.20) mg/dL Glucose 99 (70-105) mg/dL Calcium 7.9 L (8.6-10.3) mg/dL Total Bilirubin 0.3 (0.3-1.0) mg/dL AST 22 (13-39) Units/L ALT 14 (7-52) Units/L Alkaline Phosphatase 52 (34-104) Units/L Albumin 2.9 L (3.5-5.7) g/dL - Attending Attestation I have personally seen and examined the patient. I have reviewed pertinent labs , imaging, progress notes, including this one. I agree with the above assessment and plan and wish to include the following... 36F POD #1 s/p lap amena with IoC; still having pain, but the pain is 2/2 to surgery. Tolerating liquids and able to urinate on her own. Appropriately tender to palpation, incisions are clean and intact with minimal serosanguinous drainage. Will begin PO pain meds and advance diet as tolerated. will likely plan for d/c in AM
[2017-03-20] MEDS: *HR* OxyCODONE/APAP 7.5/325 TABLET PO PRN ×2 (15:15→19:11)
[2017-03-20] MEDS ORDERED: Ibuprofen 800 MG TABLET PO SCH (16:00)
[2017-03-20] MEDS: Nicotine 7 MG PATCH.TD24 TD SCH (17:34)
[2017-03-20] MEDS ORDERED: Lurasidone 20 MG TABLET PO SCH (21:00)
[2017-03-20] MEDS: D5% in Lactated Ringers 1,000 ML IVC SCH (22:05)
[2017-03-20] MEDS: D5% in 0.45% NACL w KCl 20 MEQ/1,000 ML MLS IVC SCH (22:07)
[2017-03-20] MEDS ORDERED: Albuterol 2.5 MG/3 ML NEBULIZER IH PRN (22:31)
[2017-03-20] MEDS ORDERED: traMADol 50 MG TABLET PO PRN (22:31)
[2017-03-20 23:10] LABS: Hematocrit 28.7 % (35.3-44.9); Hemoglobin 9.6 g/dL (11.5-15.4)
[2017-03-20 23:25] LABS: Alanine Aminotransferase 14 Units/L (7-52); Albumin 2.9 g/dL (3.5-5.7); Albumin/Globulin Ratio 1.6 (1.1-2.2); Alkaline Phosphatase 52 Units/L (34-104); Aspartate Amino Transferase 22 Units/L (13-39); BUN/Creatinine Ratio 8 (6-26); Bilirubin,Total 0.3 mg/dL (0.3-1.0); Blood Urea Nitrogen 4 mg/dL (6-20); Calcium 7.9 mg/dL (8.6-10.3); Carbon Dioxide 26 mEq/L (23-29); Chloride 110 mEq/L (98-107); Globulin 1.8 g/dL (2.4-3.5); Glucose 99 mg/dL (70-105); Osmolality,Calculated 285 (280-300); Potassium 3.4 mEq/L (3.5-5.1); Sodium 139 mEq/L (136-145); Total Protein 4.7 g/dL (6.4-8.9); eGFR For African Americans > 60 (> 60); eGFR For Non-African Americans > 60 (> 60)
[2017-03-21] MEDS: *HR* OxyCODONE/APAP 7.5/325 TABLET PO PRN ×2 (00:53→07:45)
[2017-03-21] MEDS ORDERED: *HR* Enoxaparin 40 MG/0.4 ML SYRINGE SQ SCH (06:00)
[2017-03-21 07:37] VITALS: BP 119/74
[2017-03-21] MEDS ORDERED: carBAMazepine 200 MG TABLET PO SCH (09:00)
[2017-03-21] MEDS ORDERED: Gabapentin 100 MG CAPSULE PO SCH (09:00)
--- NOTE | 2017-03-21 09:18 | Discharge Summary ---
Date of Encounter: 03/21/17 Time of Encounter: 09:12 - Discharge Diagnosis (1) Gallstones and inflammation of gallbladder without obstruction Priority: Primary Status: Acute Comments: significant inflammation, cystic duct obstruction Code(s): K80.00 - Calculus of gallbladder with acute cholecystitis without obstruction (2) Anxiety disorder Priority: Secondary Status: Chronic Comments: resume home meds (3) Depression Priority: Secondary Status: Chronic Comments: resume home meds Qualifiers: Depression Type: major depressive disorder Major depression recurrence: recurrent Active/Remission status: currently active Psychotic features: without psychotic features (4) Tobacco abuse Priority: Secondary Status: Chronic Comments: nicotine patch; encouraged smoking cessation while inpatient - Discharge Medications Prescriptions: OxyCODONE/APAP 7.5/325 [Percocet 7.5/325 MG] 1 each PO Q6HR PRN 7 Days #28 tablet PRN Reason: Pain Cyclobenzaprine [Flexeril] 10 mg PO TID PRN 10 Days #30 tablet PRN Reason: Spasms Docusate Sodium [Colace] 100 mg PO DAILY 30 Days #30 capsule Home Medications: CarBAMazepine [Tegretol] 200 mg PO BID 03/11/15 [History] Escitalopram [Lexapro] 20 mg PO DAILY #30 tablet 03/14/15 [Rx] Ondansetron ODT [Zofran ODT] 4 mg SL Q6HR PRN #14 tab.rapdis 03/14/17 [Rx] Benztropine Mesylate 0.5 mg PO HS 03/17/17 [History] Buspirone HCl [Buspar] 30 mg PO BID 03/17/17 [History] Gabapentin [Neurontin] 800 mg PO QID 03/17/17 [History] Lurasidone HCl [Latuda] 80 mg PO DAILY 03/17/17 [History] Cyclobenzaprine [Flexeril] 10 mg PO TID PRN 10 Days #30 tablet 03/21/17 [Rx] Docusate Sodium [Colace] 100 mg PO DAILY 30 Days #30 capsule 03/21/17 [Rx] OxyCODONE/APAP 7.5/325 [Percocet 7.5/325 MG] 1 each PO Q6HR PRN 7 Days #28 tablet 03/21/17 [Rx] Allergies/Adverse Reactions: 3 Allergy/AdvReac Type Severity Reaction Status Date / Time Sulfa (Sulfonamide AdvReac Palpitation Verified 03/14/17 10:22 Antibiotics) s General Surgery Exam Initial Vital Signs Temp Pulse Resp BP Pulse Ox 98.6 F 78 16 115/79 96 03/17/17 16:51 03/17/17 16:51 03/17/17 16:51 03/17/17 16:51 03/17/17 16:51 - General physical appearance well developed, well nourished, no distress - Eyes other (no scleral icerus) - ENT normocephalic - Neck no lymphadectomy - Respiratory normal expansion, normal respiratory effort - Cardiovascular Cardiovascular exam: Present: RRR - Abdomen Abdomen general surgery: Present: soft, tender (appropriately tender along incisions; non peritoneal) - Incision Incision: Present: clean and dry, intact - Integumentary Integumentary general surgery: Present: warm and dry - Neurologic Present: CN 2-12 grossly intact - Musculoskeletal Present: other (FROM in UE/LE bilaterally) - Psychiatric Psychiatric general surgery: Present: A&Ox3 Date of admission: 03/17/17 18:46 Primary care physician: Pola Catherine MD Consults: gastroenterology, Dr. French Discharging clinician: Ranjith Baker Anticipated date of discharge: 03/21/17 - Patient Status Disposition: Home, Self-Care Condition: Good Functional capacity at discharge: independent ambulation Overall status at discharge: patient is progressing back to baseline - Discharge Instructions Follow Up With: Pola Catherine MD [Primary Care Provider] - Ranjith Baker MD [Non-Partnered Physician] - 04/04/17 () Additional Instructions: Pain Narcotics are prescribed. 1-2 tabs every 6 hours. Please take with meals. DO NOT drive while taking narcotics. Activity As tolerated. However, I encourage you to limit heaving lifting and strenuous activity until evaluated in clinic. Diet As tolerated. Bowel Regimen As long as you are taking narcotics, please take a stool softner daily. Warnings If you experience significant redness around the incision or drainage from the incision that is purulent or malodorous, or you experience fevers, chills, or food intolerance (including nausea, vomiting, abdominal pain or distension), jaundice or yellow skin, eyes, tongue/cheek, or any symptoms you feel warrant evaluation, please call the office. If unable to reach the office, please go to nearest urgent care center or emergency department - Diet and Activity Activity: resume usual activities as tolerated Diet: advance to your usual diet - Hospital Course Hospital course: Ms. Garibay is a 36 year old female admitted from the office on 03/17. She had an MRCP to evaluate for ductal dilatation found on prior imaging. GI was consulted for possible ERCP. The decision, however was made for an intraoperative cholangiogram. I took the patient to the OR on 03/19 and performed a laparoscopic cholecystectomy with intraoperative cholangiogram. POD# 1 she was restarted on home meds, PO pain meds, and a regular diet. POD#2 she met discharge criteria and was discharged home. Time spent discussing smoking cessation with patient: more than 10 minutes (The patient was reportedly smoking in the bathroom and leaving the floor to smoke) - Time Spent with Patient Total time spent providing and/or coordinating discharge services: Greater than 30 minutes Labs on day of discharge: Labs from last 24 hours 03/20/17 03/20/17 22:53 22:53 Hgb 9.6 L Hct 28.7 L Sodium 139 Potassium 3.4 L Chloride 110 H Carbon Dioxide 26 BUN 4 L Creatinine 0.48 L Est GFR ( Amer) > 60 Est GFR (Non-Af Amer) > 60 BUN/Creatinine Ratio 8 Glucose 99 Calculated Osmolality 285 Calcium 7.9 L Total Bilirubin 0.3 AST 22 ALT 14 Alkaline Phosphatase 52 Serum Total Protein 4.7 L Albumin 2.9 L Globulin 1.8 L Albumin/Globulin Ratio 1.6 - Impressions ITS Impressions Gallbladder Ultrasound 03/17/17 21:00 IMPRESSION: 1. The gallbladder is distended and filled with sludge and gallstones. Mild gallbladder wall thickening. Correlate for acute cholecystitis. 2. Common bile duct dilatation. No evident common duct calculus. D/ / 03/17/2017 21:53:58 Viet Whitley MD / laura Interpreting Provider: Viet Whitley MD Abdomen MRI 03/18/17 07:07 IMPRESSION: Unchanged mild intra and extrahepatic biliary ductal dilation without evidence of choledocholithiasis. Findings are similar to multiple prior studies dating back to December 2013 and favored to represent mild common duct stricture over obstructing mass due to the normal caliber pancreatic duct. Incidentally noted pancreatic divisum. Hepatic steatosis. Cholelithiasis and biliary sludge without definite evidence of cholecystitis. D/ / Abhilash Alcala MD / Abhilash Alcala MD Interpreting Provider: Abhilash Alcala MD
[2017-03-21] MEDS ORDERED: Nicotine 7 MG PATCH.TD24 TD SCH (18:00)
== END 2017-03-21 10:42 | disposition home or self-care (01) | DRG 418 ==
LOC: 3ANU
PROVIDERS: ADMIT Surgery; ATTEND Surgery

== ENCOUNTER 2019-04-02 21:15 | Inpatient (IN) ==
[2019-04-02 22:08] LABS: Bilirubin,Urine Small (Negative); Blood,Urine Negative (Negative); Clarity,Urine Cloudy (Clear); Color,Urine Dark Yellow (Yellow); Glucose,Urine (UA) Normal (Normal); Ketones,Urine 15 mg/dL (Negative); Leukocyte Esterase,Urine Negative (Negative); Nitrite,Urine Negative (Negative); PH,Urine 6.5 pH Units (5.0-8.0); Protein,Urine Trace mg/dL (Neg-Trace); Specific Gravity,Urine 1.026 (1.010-1.025); Urobilinogen,Urine Normal (Normal)
[2019-04-02 22:10] LABS: Bacteria,Urine None Seen per hpf (None-Few); Hyaline Casts,Urine Moderate per lpf (None-Few); RBC,Urine 0-3 per hpf (0-3); Squamous Epithelial Cell,Urine Many per lpf (None-Few)
[2019-04-02 22:28] LABS: Basophils # 0.1 K/mcL (0.0-0.2); Basophils % 0.9 %; Eosinophils # 0.2 K/mcL (0.0-0.6); Eosinophils % 3.3 %; Hematocrit 36.6 % (35.3-44.9); Hemoglobin 13.1 g/dL (11.5-15.4); Immature Granulocytes % 0.5 % (0-4); Lymphocytes # 1.8 K/mcL (0.6-4.6); Lymphocytes % 27.9 %; Mean Corpuscular HGB Conc 35.8 g/dL (31.6-35.5); Mean Corpuscular Hemoglobin 32.8 pg (28.0-33.3); Mean Corpuscular Volume 91.5 fL (83.0-100.0); Mean Platelet Volume 8.8 fL (9.4-12.4); Monocytes # 0.5 K/mcL (0.0-1.3); Monocytes % 8.5 %; Neutrophils # 3.8 K/mcL (1.6-8.9); Platelet Count 268 K/mcL (140-400); Red Cell Distribution Width 12.4 % (11.5-14.5); Segmented Neutrophils % 58.9 %; White Blood Count 6.4 K/mcL (4.3-11.1)
[2019-04-02] MEDS ORDERED: *HR* LORazepam 2 MG/ML VIAL IM STA (22:30)
[2019-04-02] MEDS ORDERED: *HR* LORazepam 1 MG TABLET PO ONE (22:39)
[2019-04-02 22:48] LABS: Acetaminophen < 10 mcg/mL (10-20); BUN/Creatinine Ratio 12 (6-26); Blood Urea Nitrogen 6 mg/dL (6-20); Carbon Dioxide 22 mEq/L (23-29); Chloride 110 mEq/L (98-107); Ethanol < 10 mg/dL (Less than 10); Glucose 115 mg/dL (70-105); Osmolality,Calculated 291 (280-300); Potassium 2.8 mEq/L (3.5-5.1); Salicylate < 2.5 mg/dL (15.0-30.0); Sodium 141 mEq/L (136-145); eGFR For African Americans > 60 (> 60); eGFR For Non-African Americans > 60 (> 60)
[2019-04-02 23:17] LABS: Amphetamine Screen,Urine Positive ng/mL (Cutoff=1000); Barbiturate Screen,Urine Negative ng/mL (Cutoff=200); Benzodiazepines Screen,Urine Positive ng/mL (Cutoff=200); Cannabinoid Screen,Urine Positive ng/mL (Cutoff = 50); Cocaine Screen,Urine Negative ng/mL (Cutoff= 300); Opiate Screen,Urine Negative ng/mL (Cutoff=300); Phencyclidine Screen,Urine Negative ng/mL (Cutoff=25)
[2019-04-03] MEDS ORDERED: *HR* LORazepam 1 MG TABLET PO ONE ×2 (03:21→08:29)
[2019-04-03] MEDS ORDERED: *HR* HYDROcodone/Acet 10/325 mg TABLET PO ONE (06:12)
[2019-04-03] MEDS ORDERED: MOM Conc 10 ML UD.LIQ PO PRN (06:38)
[2019-04-03] MEDS ORDERED: *HR* LORazepam 1 MG TABLET PO PRN (06:38)
[2019-04-03] MEDS ORDERED: Mag Hydrox/Al Hydrox/Simeth 30 ML UDC PO PRN (06:38)
[2019-04-03] MEDS ORDERED: Haloperidol Lactate 5 MG/ML VIAL IM PRN (06:38)
[2019-04-03] MEDS ORDERED: *HR* LORazepam 2 MG/ML VIAL IM PRN (06:38)
[2019-04-03] MEDS: Acetaminophen 325 MG TABLET PO PRN (09:29)
[2019-04-03] MEDS: Vitamin B Complex/Vit C/Vit E 1 EACH TABLET PO SCH (09:31)
[2019-04-03] MEDS ORDERED: Ergocalciferol (VIT D2) 50,000 UNIT (1.25MG) CAP PO SCH ×2 (10:45→13:00)
[2019-04-03] MEDS: Gabapentin 400 MG CAPSULE PO SCH ×3 (15:21→20:14)
[2019-04-03] MEDS: *HR* LORazepam 1 MG TABLET PO SCH ×2 (15:21→20:14)
[2019-04-03] MEDS: hydrOXYzine pamoate 25 MG CAPSULE PO PRN (18:25)
[2019-04-03] MEDS: Nicotine 2 MG GUM BC PRN (18:38)
[2019-04-03] MEDS: carBAMazepine 200 MG TABLET PO SCH (20:13)
[2019-04-04] MEDS: Nicotine 2 MG GUM BC PRN ×4 (07:48→23:32)
[2019-04-04] MEDS: Venlafaxine XR (24 HR) 75 MG CAP.ER.24H PO SCH (08:04)
[2019-04-04] MEDS: Vitamin B Complex/Vit C/Vit E 1 EACH TABLET PO SCH (08:04)
[2019-04-04] MEDS: Gabapentin 400 MG CAPSULE PO SCH ×4 (08:04→21:51)
[2019-04-04] MEDS: *HR* LORazepam 1 MG TABLET PO SCH ×3 (08:04→21:52)
[2019-04-04] MEDS: carBAMazepine 200 MG TABLET PO SCH ×2 (08:04→21:51)
[2019-04-04] MEDS: hydrOXYzine pamoate 25 MG CAPSULE PO PRN (21:53)
[2019-04-05 01:07] VITALS: BP 127/82
[2019-04-05] MEDS: Nicotine 2 MG GUM BC PRN ×2 (05:01→08:43)
[2019-04-05] MEDS: *HR* LORazepam 1 MG TABLET PO SCH (08:13)
[2019-04-05] MEDS: Venlafaxine XR (24 HR) 75 MG CAP.ER.24H PO SCH (08:13)
[2019-04-05] MEDS: Vitamin B Complex/Vit C/Vit E 1 EACH TABLET PO SCH (08:14)
[2019-04-05] MEDS: carBAMazepine 200 MG TABLET PO SCH (08:14)
[2019-04-05] MEDS: Gabapentin 400 MG CAPSULE PO SCH (08:14)
[2019-04-05] MEDS: Acetaminophen 325 MG TABLET PO PRN (08:15)
== END 2019-04-05 10:35 | disposition home or self-care (01) | DRG 885 ==
LOC: EMEROOARM 21:15 → 1ANU 04-03 06:01
PROVIDERS: ADMIT Psychiatry & Neurology Forensic Psychiatry; ATTEND Psychiatry & Neurology Forensic Psychiatry

== ENCOUNTER 2019-12-22 21:52 | Inpatient (IN) ==
[2019-12-22] MEDS ORDERED: Acetaminophen 325 MG TABLET PO ONE (22:17)
[2019-12-22] MEDS ORDERED: Ziprasidone 20 MG in Water for inj. (sterile) 1 ML IM ONE (22:44)
[2019-12-23] MEDS ORDERED: Mag Hydrox/Al Hydrox/Simeth 30 ML UDC PO PRN (00:02)
[2019-12-23] MEDS ORDERED: Haloperidol Lactate 5 MG/ML VIAL IM PRN (00:02)
[2019-12-23] MEDS ORDERED: MOM Conc 10 ML UD.LIQ PO PRN (00:02)
[2019-12-23] MEDS ORDERED: haloperidoL 5 MG TABLET PO PRN (00:02)
[2019-12-23] MEDS ORDERED: *HR* LORazepam 2 MG/ML VIAL IM PRN (00:02)
[2019-12-23] MEDS ORDERED: Acetaminophen 325 MG TABLET PO PRN (00:02)
[2019-12-23] MEDS ORDERED: traZODone 50 MG TABLET PO PRN (00:02)
[2019-12-23] MEDS ORDERED: *HR* LORazepam 1 MG TABLET PO PRN (00:02)
[2019-12-23] MEDS ORDERED: Ketorolac 30 MG/ML VIAL IM ONE (00:14)
[2019-12-23] MEDS: Ibuprofen 800 MG TABLET PO PRN ×2 (04:44→20:12)
[2019-12-23] MEDS: Nicotine 21 MG PATCH.TD24 TD SCH (08:12)
[2019-12-23] MEDS: hydrOXYzine pamoate 25 MG CAPSULE PO PRN ×2 (08:12→20:12)
[2019-12-23] MEDS: *HR* OxyCODONE/APAP 7.5/325 TABLET PO SCH ×4 (08:27→20:13)
[2019-12-23] MEDS: Gabapentin 300 MG CAPSULE PO SCH ×4 (08:29→21:00)
[2019-12-23] MEDS: CarBAMazepine 100 MG TABLET PO SCH ×2 (13:10→20:58)
[2019-12-23] MEDS: Mirtazapine 15 MG TABLET PO SCH (20:14)
[2019-12-24] MEDS: Ibuprofen 800 MG TABLET PO PRN ×2 (07:06→17:53)
[2019-12-24] MEDS: Nicotine 21 MG PATCH.TD24 TD SCH (08:15)
[2019-12-24] MEDS: Gabapentin 300 MG CAPSULE PO SCH ×4 (08:17→20:27)
[2019-12-24] MEDS: CarBAMazepine 100 MG TABLET PO SCH ×2 (08:18→20:27)
[2019-12-24] MEDS: *HR* OxyCODONE/APAP 7.5/325 TABLET PO SCH ×4 (08:18→20:26)
[2019-12-24] MEDS: Mirtazapine 15 MG TABLET PO SCH (20:29)
[2019-12-25] MEDS: Gabapentin 300 MG CAPSULE PO SCH ×2 (08:03→12:08)
[2019-12-25] MEDS: *HR* OxyCODONE/APAP 7.5/325 TABLET PO SCH ×2 (08:03→12:08)
[2019-12-25] MEDS: Nicotine 21 MG PATCH.TD24 TD SCH (08:04)
[2019-12-25] MEDS: Ibuprofen 800 MG TABLET PO PRN (09:36)
[2019-12-25] MEDS: CarBAMazepine 100 MG TABLET PO SCH (10:09)
[2019-12-25 10:20] VITALS: BP 114/78
== END 2019-12-25 12:10 | disposition home or self-care (01) | DRG 885 ==
LOC: EMEROOARM 21:52 → 1ANU 23:57
PROVIDERS: ADMIT Psychiatry & Neurology Psychiatry; ATTEND Psychiatry & Neurology Psychiatry

== ENCOUNTER 2020-03-14 16:06 | Inpatient (IN) ==
[2020-03-14 16:49] LABS: Bilirubin,Urine Negative (Negative); Blood,Urine Trace (Negative); Calcium Oxalate Crystals,Urine Present; Clarity,Urine Clear (Clear); Color,Urine Colorless (Yellow); Glucose,Urine (UA) Normal (Normal); Ketones,Urine Negative (Negative); Leukocyte Esterase,Urine Negative (Negative); Nitrite,Urine Negative (Negative); Protein,Urine Negative (Neg-Trace); RBC,Urine 0-3 per hpf (0-3); Specific Gravity,Urine 1.005 (1.010-1.025); Squamous Epithelial Cell,Urine Few per hpf (None-Few); Urobilinogen,Urine Normal (Normal); WBC,Urine 0-3 per hpf (0-3)
[2020-03-14 16:59] LABS: Amphetamine Screen,Urine Negative ng/mL (Cutoff=1000); Barbiturate Screen,Urine Negative ng/mL (Cutoff=200); Benzodiazepines Screen,Urine Negative ng/mL (Cutoff=200); Cannabinoid Screen,Urine Negative ng/mL (Cutoff = 50); Cocaine Screen,Urine Negative ng/mL (Cutoff= 300); Opiate Screen,Urine Positive ng/mL (Cutoff=300); Phencyclidine Screen,Urine Negative ng/mL (Cutoff=25)
[2020-03-14 17:22] LABS: Basophils # 0.1 K/mcL (0.0-0.2); Basophils % 1.1 %; Eosinophils # 0.8 K/mcL (0.0-0.6); Eosinophils % 8.3 %; Hemoglobin 12.4 g/dL (11.5-15.4); Immature Granulocytes % 0.3 % (0-4); Lymphocytes # 2.3 K/mcL (0.6-4.6); Lymphocytes % 24.5 %; Mean Corpuscular HGB Conc 32.6 g/dL (31.6-35.5); Mean Corpuscular Volume 98.2 fL (83.0-100.0); Mean Platelet Volume 9.1 fL (9.4-12.4); Monocytes # 0.9 K/mcL (0.0-1.3); Monocytes % 9.8 %; Neutrophils # 5.3 K/mcL (1.6-8.9); Platelet Count 265 K/mcL (140-400); Red Blood Count 3.87 M/mcL (3.82-4.97); Red Cell Distribution Width 12.9 % (11.5-14.5); White Blood Count 9.5 K/mcL (4.3-11.1)
[2020-03-14 17:33] LABS: Estimated Average Glucose 120 mg/dl; Hemoglobin A1C 5.8 %
[2020-03-14 18:02] LABS: Acetaminophen < 10 mcg/mL (10-20); BUN/Creatinine Ratio 10 (6-26); Blood Urea Nitrogen 6 mg/dL (6-20); Calcium 8.8 mg/dL (8.6-10.3); Carbon Dioxide 24 mEq/L (23-29); Chloride 106 mEq/L (98-107); Chol/HDL Ratio 2.9 (0-4.9); Cholesterol 129 mg/dL (< 200); Ethanol < 10 mg/dL (Less than 10); Glucose 96 mg/dL (70-105); HDL Cholesterol 44 mg/dL (40-59); LDL Cholesterol,Calculated 64 mg/dL (< 100); Osmolality,Calculated 281 (280-300); Potassium 3.7 mEq/L (3.5-5.1); Salicylate < 2.5 mg/dL (15.0-30.0); Sodium 137 mEq/L (136-145); Triglycerides 103 mg/dL (< 150); eGFR For African Americans > 60 (> 60); eGFR For Non-African Americans > 60 (> 60)
[2020-03-14] MEDS ORDERED: *HR* LORazepam 2 MG/ML VIAL IM PRN (19:04)
[2020-03-14] MEDS ORDERED: MOM Conc 10 ML UD.LIQ PO PRN (19:04)
[2020-03-14] MEDS ORDERED: hydrOXYzine pamoate 25 MG CAPSULE PO PRN (19:04)
[2020-03-14] MEDS ORDERED: Haloperidol Lactate 5 MG/ML VIAL IM PRN (19:04)
[2020-03-14] MEDS ORDERED: traZODone 50 MG TABLET PO PRN (19:04)
[2020-03-14] MEDS ORDERED: Ibuprofen 400 MG TABLET PO PRN (19:04)
[2020-03-14] MEDS ORDERED: Mag Hydrox/Al Hydrox/Simeth 30 ML UDC PO PRN (19:04)
[2020-03-14] MEDS ORDERED: haloperidoL 5 MG TABLET PO PRN (19:04)
[2020-03-14] MEDS ORDERED: Melatonin 3 MG TABLET PO PRN (19:14)
[2020-03-14] MEDS: *HR* OxyCODONE/APAP 7.5/325 TABLET PO PRN (20:17)
[2020-03-14] MEDS: *HR* OxyCODONE ER (12 HR) 10 MG TABLET PO SCH (20:28)
[2020-03-14] MEDS: QUEtiapine Fumarate 100 MG TABLET PO SCH (21:32)
[2020-03-14] MEDS: Nicotine 21 MG PATCH.TD24 TD SCH (21:34)
[2020-03-15] MEDS: *HR* OxyCODONE/APAP 7.5/325 TABLET PO PRN ×2 (02:23→08:25)
[2020-03-15] MEDS: *HR* OxyCODONE ER (12 HR) 10 MG TABLET PO SCH ×2 (06:14→17:45)
[2020-03-15] MEDS: QUEtiapine Fumarate 100 MG TABLET PO SCH (08:21)
[2020-03-15] MEDS: Nicotine 21 MG PATCH.TD24 TD SCH (08:23)
[2020-03-15] MEDS: Gabapentin 300 MG CAPSULE PO SCH ×4 (09:21→20:49)
[2020-03-15] MEDS: *HR* OxyCODONE/APAP 7.5/325 TABLET PO SCH ×3 (12:46→20:49)
[2020-03-15] MEDS ORDERED: QUEtiapine Fumarate 100 MG TABLET PO SCH (21:00)
[2020-03-16] MEDS: *HR* OxyCODONE ER (12 HR) 10 MG TABLET PO SCH (05:48)
[2020-03-16] MEDS: Nicotine 21 MG PATCH.TD24 TD SCH (08:40)
[2020-03-16] MEDS: Gabapentin 300 MG CAPSULE PO SCH (08:42)
[2020-03-16] MEDS: *HR* OxyCODONE/APAP 7.5/325 TABLET PO SCH (08:43)
[2020-03-16 09:34] VITALS: BP 135/94
== END 2020-03-16 11:15 | disposition home or self-care (01) | DRG 885 ==
LOC: EMEROOARM 16:06 → 1ANU 19:02
PROVIDERS: ADMIT Psychiatry & Neurology Psychiatry; ATTEND Psychiatry & Neurology Psychiatry

== ENCOUNTER 2020-04-09 12:14 | Inpatient (IN) ==
[2020-04-09] MEDS ORDERED: *HR* OxyCODONE/APAP 10/325 TABLET PO ONE (12:32)
[2020-04-09 12:49] LABS: Basophils # 0.1 K/mcL (0.0-0.2); Basophils % 0.8 %; Eosinophils # 1.1 K/mcL (0.0-0.6); Eosinophils % 10.2 %; Hematocrit 42.5 % (35.3-44.9); Immature Granulocytes % 0.3 % (0-4); Lymphocytes # 2.3 K/mcL (0.6-4.6); Lymphocytes % 20.4 %; Mean Corpuscular HGB Conc 32.9 g/dL (31.6-35.5); Mean Corpuscular Hemoglobin 31.7 pg (28.0-33.3); Mean Corpuscular Volume 96.4 fL (83.0-100.0); Mean Platelet Volume 9.2 fL (9.4-12.4); Monocytes # 0.6 K/mcL (0.0-1.3); Monocytes % 5.7 %; Platelet Count 277 K/mcL (140-400); Red Blood Count 4.41 M/mcL (3.82-4.97); Red Cell Distribution Width 12.3 % (11.5-14.5); Segmented Neutrophils % 62.6 %; White Blood Count 11.2 K/mcL (4.3-11.1)
[2020-04-09 12:53] LABS: Bilirubin,Urine Negative (Negative); Blood,Urine Negative (Negative); Clarity,Urine Clear (Clear); Color,Urine Yellow (Yellow); Glucose,Urine (UA) Normal (Normal); Ketones,Urine Negative (Negative); Leukocyte Esterase,Urine Negative (Negative); Nitrite,Urine Negative (Negative); Protein,Urine Trace mg/dL (Neg-Trace); Specific Gravity,Urine 1.026 (1.010-1.025); Urobilinogen,Urine Normal (Normal)
[2020-04-09 13:00] LABS: Amphetamine Screen,Urine Negative ng/mL (Cutoff=1000); Barbiturate Screen,Urine Negative ng/mL (Cutoff=200); Benzodiazepines Screen,Urine Negative ng/mL (Cutoff=200); Cannabinoid Screen,Urine Negative ng/mL (Cutoff = 50); Cocaine Screen,Urine Negative ng/mL (Cutoff= 300); Opiate Screen,Urine Positive ng/mL (Cutoff=300); Phencyclidine Screen,Urine Negative ng/mL (Cutoff=25)
[2020-04-09 13:07] LABS: Acetaminophen < 10 mcg/mL (10-20); BUN/Creatinine Ratio 11 (6-26); Blood Urea Nitrogen 9 mg/dL (6-20); Calcium 9.3 mg/dL (8.6-10.3); Carbon Dioxide 27 mEq/L (23-29); Chloride 104 mEq/L (98-107); Chol/HDL Ratio 3.3 (0-4.9); Cholesterol 123 mg/dL (< 200); Ethanol < 10 mg/dL (Less than 10); Glucose 138 mg/dL (70-105); HDL Cholesterol 37 mg/dL (40-59); LDL Cholesterol,Calculated 37 mg/dL (< 100); Osmolality,Calculated 289 (280-300); Potassium 4.3 mEq/L (3.5-5.1); Salicylate < 2.5 mg/dL (15.0-30.0); Sodium 139 mEq/L (136-145); Triglycerides 244 mg/dL (< 150); eGFR For African Americans > 60 (> 60); eGFR For Non-African Americans > 60 (> 60)
[2020-04-09] MEDS ORDERED: *HR* LORazepam 1 MG TABLET PO PRN (15:39)
[2020-04-09] MEDS ORDERED: Haloperidol Lactate 5 MG/ML VIAL IM PRN (15:39)
[2020-04-09] MEDS ORDERED: hydrOXYzine pamoate 25 MG CAPSULE PO PRN (15:39)
[2020-04-09] MEDS ORDERED: Mag Hydrox/Al Hydrox/Simeth 30 ML UDC PO PRN (15:39)
[2020-04-09] MEDS ORDERED: Ibuprofen 400 MG TABLET PO PRN (15:39)
[2020-04-09] MEDS ORDERED: MOM Conc 10 ML UD.LIQ PO PRN (15:39)
[2020-04-09] MEDS ORDERED: *HR* LORazepam 2 MG/ML VIAL IM PRN (15:39)
[2020-04-09] MEDS ORDERED: haloperidoL 5 MG TABLET PO PRN (15:39)
[2020-04-09] MEDS ORDERED: QUEtiapine Fumarate 25 MG TABLET PO PRN (16:43)
[2020-04-09] MEDS: Gabapentin 300 MG CAPSULE PO SCH ×2 (17:30→20:03)
[2020-04-09] MEDS: *HR* OxyCODONE/APAP 7.5/325 TABLET PO PRN (17:54)
[2020-04-09] MEDS ORDERED: Nicotine 21 MG PATCH.TD24 TD ONE (18:06)
[2020-04-09] MEDS: *HR* OxyCODONE ER (12 HR) 10 MG TABLET PO SCH (20:17)
[2020-04-10] MEDS: *HR* OxyCODONE/APAP 7.5/325 TABLET PO PRN ×2 (00:10→06:18)
[2020-04-10 07:20] LABS: Estimated Average Glucose 128 mg/dl; Hemoglobin A1C 6.1 %
[2020-04-10] MEDS: Gabapentin 300 MG CAPSULE PO SCH ×4 (08:17→20:26)
[2020-04-10] MEDS: *HR* OxyCODONE ER (12 HR) 10 MG TABLET PO SCH ×2 (08:18→20:27)
[2020-04-10] MEDS ORDERED: Nicotine 21 MG PATCH.TD24 TD SCH (09:00)
[2020-04-10] MEDS: QUEtiapine Fumarate 25 MG TABLET PO SCH ×4 (09:27→20:24)
[2020-04-10] MEDS: Nicotine 21 MG PATCH.TD24 TD SCH (12:07)
[2020-04-10] MEDS: *HR* OxyCODONE/APAP 7.5/325 TABLET PO SCH ×3 (13:02→20:26)
[2020-04-10] MEDS ORDERED: QUEtiapine Fumarate 25 MG TABLET PO SCH (21:00)
[2020-04-10] MEDS ORDERED: QUEtiapine Fumarate 100 MG TABLET PO SCH (21:00)
[2020-04-11] MEDS: *HR* OxyCODONE/APAP 7.5/325 TABLET PO SCH (08:36)
[2020-04-11] MEDS: *HR* OxyCODONE ER (12 HR) 10 MG TABLET PO SCH (08:37)
[2020-04-11] MEDS: QUEtiapine Fumarate 25 MG TABLET PO SCH (08:37)
[2020-04-11] MEDS: Gabapentin 300 MG CAPSULE PO SCH (08:37)
[2020-04-11] MEDS: Nicotine 21 MG PATCH.TD24 TD SCH (08:38)
[2020-04-11 09:28] VITALS: BP 111/78
== END 2020-04-11 11:50 | disposition home or self-care (01) | DRG 885 ==
LOC: EMEROOARM 12:14 → INTOOBSV 14:54 → 1ANU 14:54
PROVIDERS: ADMIT Psychiatry & Neurology Psychiatry; ATTEND Psychiatry & Neurology Psychiatry

== ENCOUNTER 2020-08-20 05:24 | Observation (INO) ==
[2020-08-20] MEDS ORDERED: Orphenadrine 60 MG/2 ML VIAL IM ONE (05:39)
[2020-08-20] MEDS ORDERED: Ketorolac 30 MG/ML VIAL IM ONE (05:39)
[2020-08-20] MEDS ORDERED: *HR* OxyCODONE/APAP 5/325 TABLET PO ONE (06:29)
[2020-08-20 07:20] LABS: Bacteria,Urine Few per hpf (None-Few); Bilirubin,Urine Negative (Negative); Blood,Urine Negative (Negative); Clarity,Urine Turbid (Clear); Color,Urine Yellow (Yellow); Glucose,Urine (UA) Normal (Normal); Ketones,Urine Trace mg/dL (Negative); Leukocyte Esterase,Urine Negative (Negative); Mucus,Urine Few per lpf (None-Few); Nitrite,Urine Negative (Negative); Protein,Urine 50 mg/dL (Neg-Trace); RBC,Urine 0-3 per hpf (0-3); Squamous Epithelial Cell,Urine Moderate per hpf (None-Few); Urobilinogen,Urine Normal (Normal); WBC,Urine 0-3 per hpf (0-3)
[2020-08-20] MEDS ORDERED: Ketorolac 15 MG/ML VIAL IVP PRN (07:32)
[2020-08-20] MEDS ORDERED: MOM Conc 10 ML UD.LIQ PO PRN (07:32)
[2020-08-20] MEDS ORDERED: Naloxone 0.4 MG/ML INJ IVP PRN (07:32)
[2020-08-20] MEDS ORDERED: Ondansetron ODT 4 MG TAB.RAPDIS SL PRN (07:32)
[2020-08-20] MEDS ORDERED: Melatonin 3 MG TABLET PO PRN (07:32)
[2020-08-20] MEDS ORDERED: Acetaminophen 325 MG TABLET PO PRN (07:32)
[2020-08-20] MEDS ORDERED: Mag Hydrox/Al Hydrox/Simeth 30 ML UDC PO PRN (07:32)
[2020-08-20] MEDS ORDERED: Orphenadrine 60 MG/2 ML VIAL IVP PRN (07:37)
[2020-08-20] MEDS ORDERED: *HR* HYDROcodone/Acet 5/325 mg TABLET PO ONE (08:32)
[2020-08-20] MEDS ORDERED: *HR* OxyCODONE/APAP 5/325 TABLET PO PRN (09:06)
[2020-08-20 09:08] LABS: Mean Platelet Volume 9.1 fL (9.4-12.4)
[2020-08-20 09:10] LABS: Basophils # 0.1 K/mcL (0.0-0.2); Basophils % 1.3 %; Eosinophils # 0.6 K/mcL (0.0-0.6); Eosinophils % 6.9 %; Hematocrit 42.2 % (35.3-44.9); Hemoglobin 13.9 g/dL (11.5-15.4); Immature Granulocytes % 0.3 % (0-4); Immature Platelets 2.7 % (1.1-6.1); Lymphocytes # 2.4 K/mcL (0.6-4.6); Lymphocytes % 28.4 %; Mean Corpuscular HGB Conc 32.9 g/dL (31.6-35.5); Mean Corpuscular Hemoglobin 32.1 pg (28.0-33.3); Mean Corpuscular Volume 97.5 fL (83.0-100.0); Monocytes # 0.9 K/mcL (0.0-1.3); Monocytes % 10.9 %; Neutrophils # 4.5 K/mcL (1.6-8.9); Platelet Count 291 K/mcL (140-400); Red Blood Count 4.33 M/mcL (3.82-4.97); Red Cell Distribution Width 12.2 % (11.5-14.5); Segmented Neutrophils % 52.2 %; White Blood Count 8.6 K/mcL (4.3-11.1)
[2020-08-20 09:29] LABS: Alanine Aminotransferase 14 Units/L (7-52); Albumin 4.4 g/dL (3.5-5.7); Albumin/Globulin Ratio 1.9 (1.1-2.2); Alkaline Phosphatase 63 Units/L (34-104); Aspartate Amino Transferase 14 Units/L (13-39); BUN/Creatinine Ratio 11 (6-26); Bilirubin,Total 0.5 mg/dL (0.3-1.0); Blood Urea Nitrogen 10 mg/dL (6-20); Calcium 8.7 mg/dL (8.6-10.3); Carbon Dioxide 24 mEq/L (23-29); Chloride 108 mEq/L (98-107); Globulin 2.3 g/dL (2.4-3.5); Glucose 98 mg/dL (70-105); Osmolality,Calculated 287 (280-300); Potassium 3.9 mEq/L (3.5-5.1); Sodium 139 mEq/L (136-145); Total Protein 6.7 g/dL (6.4-8.9); eGFR For African Americans > 60 (> 60); eGFR For Non-African Americans > 60 (> 60)
[2020-08-20] MEDS ORDERED: Gabapentin 100 MG CAPSULE PO SCH (09:30)
[2020-08-20 10:08] LABS: Amphetamine Screen,Urine Negative ng/mL (Cutoff=1000); Barbiturate Screen,Urine Negative ng/mL (Cutoff=200); Benzodiazepines Screen,Urine Positive ng/mL (Cutoff=200); Cannabinoid Screen,Urine Positive ng/mL (Cutoff = 50); Cocaine Screen,Urine Negative ng/mL (Cutoff= 300); Opiate Screen,Urine Negative ng/mL (Cutoff=300); Phencyclidine Screen,Urine Negative ng/mL (Cutoff=25)
[2020-08-20] MEDS: *HR* OxyCODONE/APAP 5/325 TABLET PO PRN ×2 (11:10→16:58)
[2020-08-20] MEDS: Ketorolac 15 MG/ML VIAL IM PRN ×2 (14:45→21:01)
[2020-08-20] MEDS: QUEtiapine Fumarate 100 MG TABLET PO SCH (14:48)
[2020-08-20] MEDS ORDERED: hydrOXYzine pamoate 25 MG CAPSULE PO PRN (15:01)
[2020-08-20] MEDS: Gabapentin 300 MG CAPSULE PO SCH ×2 (16:58→19:52)
[2020-08-20] MEDS: *HR* Heparin 5,000 UNIT/ML VIAL SQ SCH ×2 (17:01→21:01)
[2020-08-20] MEDS: Orphenadrine 100 MG TABLET.ER PO SCH (18:01)
[2020-08-21] MEDS: *HR* OxyCODONE/APAP 7.5/325 TABLET PO PRN ×2 (00:18→06:28)
[2020-08-21 01:31] LABS: Hematocrit 36.7 % (35.3-44.9); Hemoglobin 12.8 g/dL (11.5-15.4); Mean Corpuscular HGB Conc 34.9 g/dL (31.6-35.5); Mean Corpuscular Hemoglobin 32.8 pg (28.0-33.3); Mean Corpuscular Volume 94.1 fL (83.0-100.0); Mean Platelet Volume 9.2 fL (9.4-12.4); Platelet Count 277 K/mcL (140-400); Red Cell Distribution Width 12.3 % (11.5-14.5); White Blood Count 9.7 K/mcL (4.3-11.1)
[2020-08-21 01:52] LABS: BUN/Creatinine Ratio 9 (6-26); Blood Urea Nitrogen 9 mg/dL (6-20); Calcium 8.3 mg/dL (8.6-10.3); Carbon Dioxide 19 mEq/L (23-29); Chloride 108 mEq/L (98-107); Glucose 143 mg/dL (70-105); Magnesium 1.9 mg/dL (1.6-2.6); Osmolality,Calculated 287 (280-300); Potassium 3.1 mEq/L (3.5-5.1); Sodium 138 mEq/L (136-145); eGFR For African Americans > 60 (> 60); eGFR For Non-African Americans 59 (> 60)
[2020-08-21] MEDS: Ketorolac 15 MG/ML VIAL IM PRN ×2 (03:37→10:04)
[2020-08-21] MEDS: *HR* Heparin 5,000 UNIT/ML VIAL SQ SCH (06:28)
[2020-08-21] MEDS: Orphenadrine 100 MG TABLET.ER PO SCH (06:28)
[2020-08-21 06:46] VITALS: BP 107/68
[2020-08-21] MEDS: QUEtiapine Fumarate 100 MG TABLET PO SCH (08:40)
[2020-08-21] MEDS: Gabapentin 300 MG CAPSULE PO SCH (08:41)
[2020-08-21] MEDS ORDERED: QUEtiapine Fumarate 100 MG TABLET PO SCH (09:00)
== END 2020-08-21 11:04 | disposition home or self-care (01) ==
LOC: EMEROOARM 05:24 → 3NENU 05:24 → SUATTDRO 07:44 → 3NENU 08:12
PROVIDERS: ADMIT Internal Medicine; ATTEND Family Medicine